=== PATIENT | male | born 1955 | race Caucasian/White ===

== ENCOUNTER 2018-12-19 19:50 | Emergency (ER) | payer OTHER ==
[~2018-12-19] VITALS: Ht 170.2 cm; Wt 83.5 kg
[2018-12-19 19:55] VITALS: Ht 170.2 cm; Wt 83.5 kg
[2018-12-19 23:06] VITALS: BP 179/105
== END 2018-12-19 22:57 | disposition home or self-care (01) ==
LOC: ED 19:50
DX: S40.011A Contusion of right shoulder, initial encounter (principal); W01.0XXA Fall on same level from slipping, tripping and stumbling without subsequent striking against object, initial encounter; Y93.89 Activity, other specified; Y92.89 Other specified places as the place of occurrence of the external cause; Y99.8 Other external cause status
CPT/HCPCS: J1885